=== PATIENT | male | born 1990 | race Caucasian/White ===

== ENCOUNTER 2016-07-13 00:17 | Emergency (ER) | payer OTHER, BC ==
[~2016-07-13] VITALS: Ht 188 cm; Wt 81.6 kg
--- OUTSIDE RECORDS SUMMARY | 2016-07-13 00:27 | XMS REPORT | Continuity of Care Document ---
Author Author [facility] Organization [facility] Address Unknown Phone Unavailable Care Team Providers Care Boat Hop Name Role Phone No Pcp, Na PCP Unavailable Source Comments Some departments are not documenting in the electronic medical record. If you do not see the information that you expected, contact Release of Information in the Health Information Management department at [phone] for further assistance in locating additional records.[facility] Active Allergies and Adverse Reactions No Known Allergies Current Medications Prescription Sig. Disp. Refills Start End Date Status Date CONCERTA PO Take by mouth. DAILY Active CLARITIN 10 mg Tab Take by mouth. DAILY Active Active Problems Problem Noted Date Right elbow pain 06/29/2015 Social History Tobacco Use Types Packs/Day Years Used Date Never Smoker Last Filed Vital Signs Vital Sign Reading Time Taken Blood Pressure 118/77 06/27/2015 2:06 PM SCALE ADJUSTER Pulse 78 06/27/2015 2:06 PM SCALE ADJUSTER Temperature 36.9 C (98.5 F) 05/07/2008 12:09 PM SCALE ADJUSTER Respiratory Rate 20 06/16/2015 12:52 PM SCALE ADJUSTER Height 1.88 m (6' 2") 06/27/2015 2:06 PM SCALE ADJUSTER Weight 86.183 kg (190 lb) 06/27/2015 2:06 PM SCALE ADJUSTER Body Mass Index 24.38 06/27/2015 2:06 PM SCALE ADJUSTER Oxygen Saturation 100% 06/16/2015 12:52 PM SCALE ADJUSTER Plan of Care Health Maintenance Due Date Last Done Comments Physical (Comprehensive) 1999 Exam Pertussis Vaccine 2003 Tetanus Vaccine 2009 Influenza Vaccine 02/29/2016 Results from Last 3 Months Not on file
[2016-07-13] MEDS ORDERED: LIDOCAINE/EPI 1%-1:100,000 (XYLOCAINE) 20ML INJ ONE (00:45)
[2016-07-13] MEDS ORDERED: RX-TRIMETH/SULFA. 160-800 MG (BACTRIM DS) TAB PPK#2 PO STA (00:55)
[2016-07-13] MEDS ORDERED: SULF1TAB35 PO (00:58)
--- NOTE | 2016-07-13 00:58 | ED Lower Extremity ---
General Chief Complaint: Laceration Stated Complaint: FELL IN MANHOLE,LEFT LEG LAC Nursing Triage Note: Stated at approx 2200 was walking dog and fell in man hole cover and lacerated left caballero. Dressing removed. gaping laceration mid caballero, bleeding controlled. Nursing Sepsis Screen: No Definite Risk Source: patient History of Present Illness Time seen by provider: 00:37 Initial Comments PT WAS WALKING HIS DOG TONIGHT AROUND 2200, AND HIS LEFT LEG STEPPED/FELL INTO A MANHOLE, AND CUT LEFT LOWER LEG NO OTHER INJURIES NO PARESTHESIAS OR MOTOR DEFICITS. PSU STUDENT Allergies and Home Medications Allergies Coded Allergies: No Known Drug Allergies (Unverified , 07/13/16) Home Medications Sulfamethoxazole/Trimethoprim 1 Each Tablet #20 1 EACH PO BID Prescribed by: CARLYN BERMEO on 07/13/16 0058 Constitutional: no symptoms reported Musculoskeletal: see HPI Skin: see HPI Psychiatric/Neurological: No Symptoms Reported Past Miiywcr-Umryfw-Yxkczc Hx Patient Social History Alcohol Use: Occasionally Uses Recreational Drug Use: No Smoking Status: Never a Smoker Recent Foreign Travel: No Contact w/Someone Who Travel: No Recent Infectious Disease Expo: No Recent Hopitalizations: No Physical Abuse Screen: No Sexual Abuse: No Immunizations Up To Date Tetanus Booster (TDap): Less than 5yrs Seasonal Allergies Seasonal Allergies: No Surgeries HX Surgeries: No Respiratory Hx Respiratory Disorders: No Cardiovascular Hx Cardiac Disorders: No Neurological Hx Neurological Disorders: No Reproductive System Hx Reproductive Disorders: No Genitourinary Hx Genitourinary Disorders: No Gastrointestinal Hx Gastrointestinal Disorders: No Musculoskeletal Hx Musculoskeletal Disorders: No Endocrine Hx Endocrine Disorders: No HEENT HX ENT Disorders: No Cancer Hx Cancer: No Psychosocial Hx Psychiatric Problems: No Integumentary HX Skin/Integumentary Disorder: No Blood Transfusions Hx Blood Disorders: No Physical Exam Vital Signs Vital Sign - Last 12Hours 07/13/16 00:29 Temp 97.5 Pulse 89 Resp 18 B/P 125/82 Pulse Ox 99 Capillary Refill : Less Than 3 Seconds General Appearance: WD/WN no apparent distress Legs: right leg normal inspection, left leg soft tissue tenderness, left leg other (3 CM SUB Q LACERATION TO ANTERIOR ASPECT OF LEFT LOWER LEG. NO BONY TENDERNESS, . NO EVIDENCE OF FOREIGN BODY. MOTOR/SENSORY/VASCULAR INTACT) Knees: left knee normal inspection Ankles: left ankle normal inspection Feet: left foot normal inspection Neurologic/Tendon: normal sensation normal motor functions normal tendon functions Neurologic/Psychiatric: patient safety coordinator II-XII nml as tested no motor/sensory deficits alert normal mood/affect oriented x 3 Skin: normal color warm/dry other (LACERATION ABOVE) Laceration Repair : Other Wound Location LEFT LOWER LEG Wound Length (cm): 3 Wound's Depth, Shape: irregular Wound Explored: clean Anesthesia: Lidocaine w/ Epi (1%) Staple Repair: Stapler 35W (# 4 CHARLINE) Sterile Dressing Applied?: Yes Progress/Results/Core Measures Results/Orders My Orders Orders-CARLYN BERMEO DO Lidocaine/Epi 1% 1:100,000 (Xylocaine /E (07/13/16 00:45) Rx-Trimeth/Sulfameth Ds Tab (Rx-Bactrim/ (07/13/16 00:55) Medications Given in ED Current Medications Medications Dose Ordered Sig/Davey Route Start Time Stop Time Status Last Admin Dose Admin Lidocaine/ Epinephrine 20 ml ONCE ONCE INJ 07/13/16 00:45 07/13/16 00:46 DC 07/13/16 00:48 20 ML Vital Signs/I&O Vital Sign - Last 12Hours 07/13/16 07/13/16 00:29 01:10 Temp 97.5 97.9 Pulse 89 80 Resp 18 18 B/P 125/82 Pulse Ox 99 99 Blood Pressure Mean: 96 Departure Impression Impression: Primary Impression: Laceration of left lower leg Disposition: 01 HOME, SELF-CARE Condition: Stable Departure-Patient Inst. Referrals: [facility] (PCP/Family) Primary Care Physician Patient Instructions: Laceration Repair With Withams (DC) Add. Discharge Instructions: CLEAN WOUND TWICE A DAY WITH ANTIBACTERIAL SOAP AND WATER, OTHERWISE KEEP CLEAN AND DRY ICE TO AREA AT 20 MINUTE INTERVALS FOR THE FIRST 24-48 HOURS TYLENOL AND MOTRIN NEEDED FOR PAIN CHARLINE OUT IN 10 DAYS--RETURN TO ER FOR REMOVAL All discharge instructions reviewed with patient and/or family. Voiced understanding. Scripts Sulfamethoxazole/Trimethoprim (Bactrim Ds Tablet)1 Each Tablet1 Each PO BID #20 TAB Prov:CARLYN BERMEO DO 07/13/16 Images Extremities-Lower 1 - Laceration CARLYN BERMEO DO Jul 13, 2016 00:58
[2016-07-13 01:10] VITALS: BP 120/60
== END 2016-07-13 01:10 | disposition home or self-care (01) ==
LOC: EDUNIT# 00:17 → ER 00:23
DX: S81.812A Laceration without foreign body, left lower leg, initial encounter (principal); W17.1XXA Fall into storm drain or manhole, initial encounter; Y93.K1 Activity, walking an animal; Y99.8 Other external cause status
CPT/HCPCS: 12031

== ENCOUNTER 2016-07-23 15:54 | Emergency (ER) | payer BC ==
[~2016-07-23] VITALS: Ht 188 cm; Wt 81.6 kg
[~2016-07-23 15:54] MED LIST: SULF1TAB35 PO
--- OUTSIDE RECORDS SUMMARY | 2016-07-23 16:00 | XMS REPORT | Continuity of Care Document ---
Author Author [facility] Organization [facility] Address Unknown Phone Unavailable Care Team Providers Care Confectionery Maker Name Role Phone No Pcp, Na PCP Unavailable Source Comments Some departments are not documenting in the electronic medical record. If you do not see the information that you expected, contact Release of Information in the Health Information Management department at [phone] for further assistance in locating additional records.[facility] Active Allergies and Adverse Reactions No Known [...] Taken Blood Pressure 118/77 06/27/2015 2:06 PM FACS TEACHER Pulse 78 06/27/2015 2:06 PM FACS TEACHER Temperature 36.9 C (98.5 F) 05/07/2008 12:09 PM FACS TEACHER Respiratory Rate 20 06/16/2015 12:52 PM FACS TEACHER Height 1.88 m (6' 2") 06/27/2015 2:06 PM FACS TEACHER Weight 86.183 kg (190 lb) 06/27/2015 2:06 PM FACS TEACHER Body Mass Index 24.38 06/27/2015 2:06 PM FACS TEACHER Oxygen Saturation 100% 06/16/2015 12:52 PM FACS TEACHER Plan of Care Health Maintenance Due Date Last Done Comments Physical (Comprehensive) 1999 Exam Pertussis Vaccine 2003 Tetanus Vaccine 2009 Influenza Vaccine 02/29/2016 Results from Last 3 Months Not on file
[2016-07-23 16:01] VITALS: BP 122/68
== END 2016-07-23 16:05 | disposition home or self-care (01) ==
LOC: EDUNIT# 15:54 → ER 15:56
DX: S81.812D Laceration without foreign body, left lower leg, subsequent encounter (principal)

== ENCOUNTER 2018-07-05 13:52 | Emergency (ER) | payer BC, OTHER ==
[~2018-07-05] VITALS: Ht 188 cm; Wt 81.6 kg
[2018-07-05] MEDS ORDERED: TETANUS,DIPTH,PERTUSS P/F (BOOSTRIX) 0.5 ML VIAL IM ONE (14:15)
--- NOTE | 2018-07-05 14:15 | ED Head Injury ---
General Chief Complaint: Laceration Stated Complaint: HEAD INJ/LAC Nursing Triage Note: LACERATION TO HEAD AFTER HITTING ON A LANTERN. DENIES LOC OR NECK PAIN. Source: patient Exam Limitations: no limitations History of Present Illness Date Seen by Provider: Jul 05, 2018 Time Seen by Provider: 14:12 Initial Comments Patient is 27-year-old male who presents to the emergency room with complaints of laceration to his scalp after hitting his head on the waiting room while taking out the trash. He denies loss of consciousness or neck pain. He is alert and oriented on arrival to the emergency room. He has a 3 centimeter scrape to his scalp. Allergies and Home Medications Allergies Coded Allergies: No Known Drug Allergies (Unverified , 07/13/16) Home Medications No Active Prescriptions or Reported Meds Past Ylqznkw-Ltrtbk-Rfkcgd Hx Patient Social History Alcohol Use: Occasionally Uses Recreational Drug Use: No Smoking Status: Never a Smoker Recent Foreign Travel: No Contact w/Someone Who Travel: No Recent Infectious Disease Expo: No Recent Hopitalizations: No Immunizations Up To Date Tetanus Booster (TDap): Less than 5yrs Seasonal Allergies Seasonal Allergies: No Past Medical History Surgeries: No Respiratory: No Cardiac: No Neurological: No Reproductive Disorders: No Gastrointestinal: No Musculoskeletal: No Endocrine: No Cancer: No Psychosocial: No Integumentary: No Blood Disorders: No Physical Exam Vital Signs Vital Signs - First Documented 07/05/18 13:59 Temp 96.5 Pulse 88 Resp 16 B/P (MAP) 133/78 (96) Pulse Ox 97 O2 Delivery Room Air Capillary Refill : Less Than 3 Seconds Height, Weight, BMI Height: 6'2.00" Weight: 180lbs. oz. 81.398000gy; 23.11 BMI Method:Stated Progress/Results/Core Measures Results/Orders My Orders Orders - BERNOT,PATRICK Dipht,Pertuss(Acell),Tet Adult (Boostrix (07/05/18 14:15) Vital Signs/I&O 07/05/18 13:59 Temp 96.5 Pulse 88 Resp 16 B/P (MAP) 133/78 (96) Pulse Ox 97 O2 Delivery Room Air Blood Pressure Mean: 96 Departure Impression Primary Impression: Abrasion of scalp Disposition: 01 HOME, SELF-CARE Condition: Stable/Unchanged Departure-Patient Inst. Decision time for Depature: 14:14 Referrals: NO,LOCAL PHYSICIAN (PCP/Family) Primary Care Physician Patient Instructions: Skin Abrasions (DC) Add. Discharge Instructions: Watch for signs of infection such as increased redness, swelling, drainage. You may wash your hair in the shower like normal but do not submerge your head in the bathtub, hot tub, swimming cool or any other standing water. Return back to the emergency room for any worsening symptoms or concerns as needed. You were degenerative tetanus vaccine today. All discharge instructions reviewed with patient and/or family. Voiced understanding. Scripts No Active Prescriptions or Reported MedPATRICK Oswald Jul 05, 2018 14:15
[2018-07-05 14:30] VITALS: BP 133/78
== END 2018-07-05 14:30 | disposition home or self-care (01) ==
LOC: EDUNIT# 13:52 → ER 13:53
DX: S00.01XA Abrasion of scalp, initial encounter (principal); Z23 Encounter for immunization; W22.09XA Striking against other stationary object, initial encounter
CPT/HCPCS: 90471; 90715; 99284